=== PATIENT | female | born 1995 | race Caucasian/White ===

== ENCOUNTER 2017-07-25 19:49 | Emergency (ER) | payer OTHER ==
[2017-07-25] MEDS ORDERED: ONDANSETRON 4 MG/2 ML VIAL IVP STA (20:25)
[2017-07-25] MEDS ORDERED: PANTOPRAZOLE 40 MG/10 ML VIAL IVP STA (20:25)
[2017-07-25] MEDS ORDERED: SODIUM CHLORIDE 0.9% 1,000 ML IV STA (20:25)
--- NOTE | 2017-07-25 20:50 | ED ---
Abdominal Pain HPI - General Source: patient Mode of arrival: EMS Limitations: no limitations <Andrew Moran - Last Filed: 07/25/17 20:51> <Dilip Bauer - Last Filed: 07/25/17 23:16> - General Chief Complaint: Abdominal Pain Stated Complaint: abd pain Time Seen by Provider: 07/25/17 20:03 - History of Present Illness Initial Comments: 22 years old female sets with the epigastric pain. Also is affecting the right upper quadrant and left upper quadrant area this is ongoing since October she stated that today she throwing up bile. Denies any headache no neck stiffness no chest pain no shortness of breath doesn't abdominal pain nausea and vomiting no frequency urgency dysuria no symptoms of TIA or CVA (Andrew Moran) - Related Data Home Medications Medication Instructions Recorded Confirmed ALPRAZolam [Xanax] 2 mg PO BID 07/25/17 07/25/17 DULoxetine HCL [Cymbalta] 60 mg PO BID 07/25/17 07/25/17 Gabapentin 800 mg PO TID 07/25/17 07/25/17 Ondansetron Odt [Zofran Odt] 4 mg PO Q8HR PRN 07/25/17 07/25/17 Prazosin [Minipress] 5 mg PO BID 07/25/17 07/25/17 Sucralfate [Carafate] 1 gm PO ACHS 07/25/17 07/25/17 Zolpidem Tartrate [Ambien] 10 mg PO HS 07/25/17 07/25/17 Previous Rx's Medication Instructions Recorded Brexpiprazole [Rexulti] 1 mg PO DAILY #15 tablet 07/25/17 Dicyclomine [Bentyl] 20 mg PO QID #15 tablet 07/25/17 Sucralfate [Carafate] 1 gm PO ACHS #15 tablet 07/25/17 Allergies Allergy/AdvReac Type Severity Reaction Status Date / Time Iodinated Contrast- Oral and Allergy Rash/Hives Verified 07/25/17 20:06 IV Dye shellfish derived [Shellfish] Allergy Rash/Hives Verified 07/25/17 20:06 Review of Systems ROS Other: All systems not noted in ROS Statement are negative. <Andrew Moran - Last Filed: 07/25/17 20:51> ROS Other: All systems not noted in ROS Statement are negative. <Dilip Bauer - Last Filed: 07/25/17 23:16> ROS Statement: Those systems with pertinent positive or pertinent negative responses have been documented in the HPI. Past Medical History Past Medical History: Fibromyalgia, Seizure Disorder Additional Past Medical History / Comment(s): lupus. anemia History of Any Multi-Drug Resistant Organisms: None Reported Past Surgical History: No Surgical Hx Reported Past Psychological History: Anxiety, Bipolar, PTSD Smoking Status: Current every day smoker Past Alcohol Use History: None Reported Past Drug Use History: None Reported <Andrew Moran - Last Filed: 07/25/17 20:51> General Exam Limitations: no limitations <Andrew Moran - Last Filed: 07/25/17 20:51> <Dilip Bauer - Last Filed: 07/25/17 23:16> - General Exam Comments Initial Comments: General: The patient is awake and alert, in no distress, and does not appear acutely ill. Skin: Skin is warm and dry and no rashes or lesions are noted. Eye: Pupils are equal, round and reactive to light, extra-ocular movements are intact; there is normal conjunctiva bilaterally. Ears, nose, mouth and throat: There are moist mucous membranes and no oral lesions. Neck: The neck is supple, there is no tenderness, no signs of any meningeal irritation Cardiovascular: There is a regular rate and rhythm. No murmur, rub or gallop is appreciated. Respiratory: To auscultation bilateral, no wheezing no rhonchi no distress respiratory leary noticed Gastrointestinal: Under in epigastric area as well as right upper quadrant and left upper quadrant area positive bowel sounds no guarding no rebounds Back: There is no tenderness to palpation in the midline. There is no obvious deformity. Musculoskeletal: Normal ROM, no tenderness, There is no pedal edema. There is no calf tenderness or swelling. No cords were appreciated. Neurological: CN II-XII intact, Cranial nerves III through XII are intact. There are no obvious motor or sensory deficits. Coordination appears grossly intact. Speech is normal. Psychiatric: Cooperative, appropriate mood & affect, normal judgment. (Andrew Moran) Course <Andrew Moran - Last Filed: 07/25/17 20:51> <Dilip Bauer - Last Filed: 07/25/17 23:16> Vital Signs 07/25/17 19:57 Temperature 98.1 F Pulse Rate 100 Respiratory 20 Rate Blood Pressure 131/74 O2 Sat by Pulse 98 Oximetry patient will be endorsed to the Dr Bauer for the further evaluation and manaement, patient is complaining about term acute anxiety she has a PTSD patient be given a Xanax by mouth one now, she said her mom is coming and she would bring her medication containers no exactly how much she is taking as pharmacies are currently closed now may not be able to verify her medication and its frequency (Andrew Moran) Medical Decision Making - Lab Data Result diagrams: 07/25/17 19:38 07/25/17 19:38 <Dilip Bauer - Last Filed: 07/25/17 23:16> - Lab Data Lab Results 07/25/17 07/25/17 07/25/17 Range/Units 19:38 19:38 19:38 WBC 8.9 (4.0-11.0) k/uL RBC 4.84 (3.80-5.40) m/uL Hgb 14.0 (11.4-16.0) gm/dL Hct 41.9 (34.0-46.0) % MCV 86.6 (80.0-100.0) fL MCH 29.0 (25.0-35.0) pg MCHC 33.5 (31.0-37.0) g/dL RDW 14.8 (11.5-15.5) % Plt Count 334 (150-450) k/uL Neutrophils % 60 % Lymphocytes % 30 % Monocytes % 6 % Eosinophils % 2 % Basophils % 0 % Neutrophils # 5.4 (1.3-7.7) k/uL Lymphocytes # 2.6 (1.0-4.8) k/uL Monocytes # 0.5 (0-1.0) k/uL Eosinophils # 0.2 (0-0.7) k/uL Basophils # 0.0 (0-0.2) k/uL Sodium 143 (137-145) mmol/L Potassium 4.4 (3.5-5.1) mmol/L Chloride 106 (98-107) mmol/L Carbon Dioxide 20 L (22-30) mmol/L Anion Gap 17 mmol/L BUN 12 (7-17) mg/dL Creatinine 0.60 (0.52-1.04) mg/dL Est GFR (CKD-EPI)AfAm >90 (>60 ml/min/1.73 sqM) Est GFR (CKD-EPI)NonAf >90 (>60 ml/min/1.73 sqM) Glucose 95 (74-99) mg/dL Plasma Lactic Acid Barry 0.8 (0.7-2.0) mmol/L Calcium 9.9 (8.4-10.2) mg/dL Total Bilirubin 0.4 (0.2-1.3) mg/dL AST 28 (14-36) U/L ALT 38 (9-52) U/L Alkaline Phosphatase 96 (38-126) U/L C-Reactive Protein <5.0 (<10.0) mg/L Total Protein 7.9 (6.3-8.2) g/dL Albumin 4.7 (3.5-5.0) g/dL Amylase 75 (30-110) U/L Lipase 52 (23-300) U/L Urine Color Urine Appearance (Clear) Urine pH (5.0-8.0) Ur Specific [place] (1.001-1.035) Urine Protein (Negative) Urine Glucose (UA) (Negative) Urine Ketones (Negative) Urine Blood (Negative) Urine Nitrite (Negative) Urine Bilirubin (Negative) Urine Urobilinogen (<2.0) mg/dL Ur Leukocyte Esterase (Negative) Urine HCG, Qual (Not Detectd) 07/25/17 07/25/17 Range/Units 21:17 21:17 WBC (4.0-11.0) k/uL RBC (3.80-5.40) m/uL Hgb (11.4-16.0) gm/dL Hct (34.0-46.0) % MCV (80.0-100.0) fL MCH (25.0-35.0) pg MCHC (31.0-37.0) g/dL RDW (11.5-15.5) % Plt Count (150-450) k/uL Neutrophils % % Lymphocytes % % Monocytes % % Eosinophils % % Basophils % % Neutrophils # (1.3-7.7) k/uL Lymphocytes # (1.0-4.8) k/uL Monocytes # (0-1.0) k/uL Eosinophils # (0-0.7) k/uL Basophils # (0-0.2) k/uL Sodium (137-145) mmol/L Potassium (3.5-5.1) mmol/L Chloride (98-107) mmol/L Carbon Dioxide (22-30) mmol/L Anion Gap mmol/L BUN (7-17) mg/dL Creatinine (0.52-1.04) mg/dL Est GFR (CKD-EPI)AfAm (>60 ml/min/1.73 sqM) Est GFR (CKD-EPI)NonAf (>60 ml/min/1.73 sqM) Glucose (74-99) mg/dL Plasma Lactic Acid Barry (0.7-2.0) mmol/L Calcium (8.4-10.2) mg/dL Total Bilirubin (0.2-1.3) mg/dL AST (14-36) U/L ALT (9-52) U/L Alkaline Phosphatase (38-126) U/L C-Reactive Protein (<10.0) mg/L Total Protein (6.3-8.2) g/dL Albumin (3.5-5.0) g/dL Amylase (30-110) U/L Lipase (23-300) U/L Urine Color Yellow Urine Appearance Clear (Clear) Urine pH 6.0 (5.0-8.0) Ur Specific [place] 1.018 (1.001-1.035) Urine Protein Trace H (Negative) Urine Glucose (UA) Negative (Negative) Urine Ketones 2+ H (Negative) Urine Blood Negative (Negative) Urine Nitrite Negative (Negative) Urine Bilirubin Negative (Negative) Urine Urobilinogen <2.0 (<2.0) mg/dL Ur Leukocyte Esterase Negative (Negative) Urine HCG, Qual Not Detected (Not Detectd) Disposition <Andrew Moran - Last Filed: 07/25/17 20:51> Is patient prescribed a controlled substance at d/c from ED?: No <Dilip Bauer - Last Filed: 07/25/17 23:16> Clinical Impression: Abdominal pain, Nausea and vomiting Disposition: HOME SELF-CARE Condition: Good Instructions: Abdominal Pain (ED) Prescriptions: Brexpiprazole [Rexulti] 1 mg PO DAILY #15 tablet Dicyclomine [Bentyl] 20 mg PO QID #15 tablet Sucralfate [Carafate] 1 gm PO ACHS #15 tablet Referrals: Asad Lyle MD [Primary Care Provider] - 1-2 days
[2017-07-25] MEDS ORDERED: ALPRAZolam 1 MG TAB PO STA ×2 (20:51→20:58)
[2017-07-25 20:55] LABS: Basophils % (A) 0 %; Eosinophils # (A) 0.2 k/uL (0-0.7); Eosinophils % (A) 2 %; HCT 41.9 % (34.0-46.0); Lymphocytes # (A) 2.6 k/uL (1.0-4.8); Lymphocytes % (A) 30 %; MCHC 33.5 g/dL (31.0-37.0); MCV 86.6 fL (80.0-100.0); Mean Platelet Volume 8.2; Monocytes # (A) 0.5 k/uL (0-1.0); Monocytes % (A) 6 %; Neutrophils # (A) 5.4 k/uL (1.3-7.7); Neutrophils % (A) 60 %; Platelet Count 334 k/uL (150-450); RBC 4.84 m/uL (3.80-5.40); RDW 14.8 % (11.5-15.5); WBC 8.9 k/uL (4.0-11.0)
[2017-07-25 21:05] LABS: ALT 38 U/L (9-52); AST 28 U/L (14-36); Albumin 4.7 g/dL (3.5-5.0); Alkaline Phosphatase 96 U/L (38-126); Amylase 75 U/L (30-110); Blood Urea Nitrogen 12 mg/dL (7-17); C Reactive Protein <5.0 mg/L (<10.0); Calcium 9.9 mg/dL (8.4-10.2); Chloride 106 mmol/L (98-107); Glucose 95 mg/dL (74-99); Lipase 52 U/L (23-300); Potassium 4.4 mmol/L (3.5-5.1); Sodium 143 mmol/L (137-145); Total Bilirubin 0.4 mg/dL (0.2-1.3); Total Protein 7.9 g/dL (6.3-8.2)
[2017-07-25 21:12] LABS: Anion Gap 17 mmol/L; Carbon Dioxide 20 mmol/L (22-30)
[2017-07-25 21:35] LABS: Appearance,Urine Clear (Clear); Bilirubin,Urine Negative (Negative); Blood,Urine Negative (Negative); Color,Urine Yellow; Glucose,Urine (UA) Negative (Negative); Ketones,Urine 2+ (Negative); Leukocyte Esterase,Urine Negative (Negative); Nitrite,Urine Negative (Negative); Protein,Urine Trace (Negative); Specific Gravity,Urine 1.018 (1.001-1.035); Urobilinogen,Urine <2.0 mg/dL (<2.0)
--- NOTE | 2017-07-25 21:57 | XR ---
EXAMINATION TYPE: XR KUB DATE OF EXAM: 07/25/2017 9:47 PM CLINICAL HISTORY: Abdominal pain and vomiting TECHNIQUE: Single supine KUB image of the abdomen is obtained. COMPARISON: None. FINDINGS: Colonic air-fluid levels are seen within nondilated bowel indicative of malabsorption. Few scattered small bowel air-fluid levels are also seen within nondilated bowel. Findings may relate to ileus. No evidence of pneumoperitoneum is seen. The lung bases are clear and the osseous structures a re intact. IMPRESSION: Small large bowel scattered air-fluid levels in nondilated bowel may represent ileus.
[2017-07-25 23:33] VITALS: BP 113/72; PULSE 64; RESP 17; TEMP 98
== END 2017-07-25 23:32 | disposition home or self-care (01) ==
LOC: EC 19:49
DX: R10.13 Epigastric pain (principal); R10.12 Left upper quadrant pain; R10.11 Right upper quadrant pain; R11.2 Nausea with vomiting, unspecified; Z91.013 Allergy to seafood; M79.7 Fibromyalgia; G40.909 Epilepsy, unspecified, not intractable, without status epilepticus; F41.9 Anxiety disorder, unspecified; F32.9 Major depressive disorder, single episode, unspecified; F43.10 Post-traumatic stress disorder, unspecified; F17.200 Nicotine dependence, unspecified, uncomplicated; Z79.899 Other long term (current) drug therapy; Z91.041 Radiographic dye allergy status; Z53.20 Procedure and treatment not carried out because of patient's decision for unspecified reasons
CPT/HCPCS: 36415; 80053; 82150; 83605; 83690; 85025; 86140; 81003; 81025; 74018; 99284; 96374; 96361; J2405